=== PATIENT | male | born 1985 ===

== ENCOUNTER 2016-11-02 05:26 | Emergency (ER) | payer OTHER ==
--- NOTE | 2016-11-02 07:51 | RAD ---
HAND-LEFT 3 VIEWS HISTORY: Finger laceration. COMPARISONS: 06/06/2009. FINDINGS: 3 views of the left hand demonstrate normal bony mineralization. The visualized osseous structures appear to remain intact. There is soft tissue distortion involving the second, third and fourth fingers at the level of the PIP joints. A small radiopaque foreign body is suggested within the volar soft tissues at the level of the proximal fifth metacarpal, stable from the appearance on prior examination. IMPRESSION: 1. Soft tissue distortion involving the second, third and fourth rays at the level of the PIP joints without an underlying fracture. 2. A stable small radiopaque foreign body within the volar soft tissues at the level of the proximal fifth metacarpal.
[2016-11-02] MEDS ORDERED: SULFAMETHOXAZOLE 800 MG/TRIMETHOPRIM 160 MG TABLET ONE (07:54)
== END 2016-11-02 08:04 | disposition home or self-care (01) ==
LOC: ED 05:26
DX: S61.412A Laceration without foreign body of left hand, initial encounter (principal); J45.909 Unspecified asthma, uncomplicated; W29.8XXA Contact with other powered hand tools and household machinery, initial encounter; Y93.H3 Activity, building and construction; Y92.69 Other specified industrial and construction area as the place of occurrence of the external cause; Y99.0 Civilian activity done for income or pay
CPT/HCPCS: 73130; 99283 ×2; 12002 ×2; A9270